=== PATIENT | male | born 1995 | race Caucasian/White ===

== ENCOUNTER 2021-11-24 00:19 | Inpatient (IN) | payer SELFPAY ==
[2021-11-24] VITALS (9 sets, daily range): BP systolic 103–142; BP diastolic 61–88; PULSE 64–84; RESP 16–19; TEMP 36.3–36.8; O2SAT 95–100; BMI 20.7
[2021-11-24 00:41] LABS: Basophils # 0.1 10^3/uL (0.0-0.1); Basophils % 1.2 %; Eosinophils # 0.5 10^3/uL (0.0-0.8); Eosinophils % 5.1 %; Hematocrit 45.7 % (42.0-52.0); Hemoglobin 15.3 g/dL (11.7-16.6); Lymphocytes # 4.5 10^3/uL (0.8-4.8); Lymphocytes % 45.6 %; Mean Corpuscular HGB Conc 33.5 g/dL (30.0-36.0); Mean Corpuscular Hemoglobin 33.2 pg (28.0-34.0); Mean Corpuscular Volume 99.1 fl (80-94); Mean Platelet Volume 9.7 fL (7.4-10.4); Monocytes # 0.6 10^3/uL (0.2-0.9); Monocytes % 6.3 %; Neutrophils # 4.07 10^3/uL (1.8-7.7); Neutrophils % 41.6 %; Nucleated Red Blood Cells % 0 %; Platelet Count 292 10^3/cmm (130-400); Red Blood Count 4.61 10^6/uL (4.1-5.3); Red Cell Distribution Width 12.2 % (12.1-15.1); White Blood Count 9.8 10^3/uL (4.0-10.0)
[2021-11-24 01:02] LABS: Alanine Aminotransferase 13 U/L (0-41); Albumin Level 4.1 g/dL (3.5-5.2); Alkaline Phosphatase 87 IU/L (40-130); Anion Gap 12.4 (5-19); Aspartate Amino Transferase 22 U/L (0-40); Blood Urea Nitrogen 14 mg/dL (6-20); Carbon Dioxide 28 mmol/L (22-29); Chloride 103 mmol/L (98-107); Glomerular Filtration Rate 118.8 mL/min (90-130); Glucose 86 mg/dL (65-115); Osmolality Calculated 288 mOsm/kg (285-295); Potassium 4.4 mmol/L (3.5-5.1); Sodium 139 mmol/L (136-145); Total Bilirubin 0.2 mg/dL (0.15-1.2); Total Protein 6.1 g/dL (6.6-8.7)
[2021-11-24 01:04] LABS: Acetaminophen < 5.0 ug/mL (10-30); Alcohol Level < 10 mg/dL (0-10); Salicylate < 0.3 mg/dL (3-10)
--- NOTE | 2021-11-24 01:12 | ED.C_ITS ---
HPI - Psych General: Chief Complaint: Psychiatric Symptoms Stated Complaint: court order 96 hour hold Time Seen by Provider: 11/24/21 00:29 Source: patient History of Present Illness: 26-year-old male who says he was hospitalized a month or so ago in [facility] for psychiatric problems. He presents tonight on a court ordered 96-hour hold. The report states that this young man had been hearing voices from the TV, and believes that devices can be implanted in TVs and electronic equipment to spy on others. He denies substance abuse. Denies any recent illnesses. MD complaint: other Onset (ago): day(s) Duration: constant History of same: Yes Relieving factors: none Exacerbating factors: none Context: not taking psychiatric medications Associated psychiatric symptoms: auditory hallucinations and visual hallucinations Associated symptoms: Reports depression Review of Systems Const: Denies: fever(s) or chills Eyes: Denies: change in vision ENMT: Denies: throat pain Card: Denies: chest pain Resp: Denies: dyspnea, productive cough or non-productive cough GI: Denies: abdominal pain, nausea, vomiting or diarrhea Neuro: Denies: headache(s) Psych: Reports: depression Physical Exam Const: GENERAL APPEARANCE: cooperative HENMT: COMMON NORMALS: normocephalic, atraumatic and Normal external nose present HEAD & SCALP: normocephalic and atraumatic NOSE: Normal external nose present Eye: COMMON NORMALS: Equal, round and reactive pupils present and EOMs intact bilaterally PUPIL: Yes Equal, round and reactive pupils present Neck/C-Spine: COMMON NORMALS: full ROM Chest: CHEST: Yes Symmetrical chest wall rise Resp: COMMON NORMALS: normal respiratory effort, No use of accessory muscles and clear to auscultation bilaterally AUSCULTATION: clear to auscultation bilaterally Cardio: COMMON NORMALS: regular rate and regular rhythm RATE: regular rate RHYTHM: regular rhythm GI: COMMON NORMALS: Normal to inspection, nondistended, normoactive bowel sounds present, Soft to palpation and non-tender PALPATION: Yes Soft to palpation Extremity: NARRATIVE EXTREMITY EXAM: Right index finger distal healing wound. Neuro: BJ COMA SCALE: document GCS findings Bj coma scale eye opening: Spontaneous [place] coma scale verbal response: Orientated Bj coma scale motor response: Obey commands [place] coma scale total score: 15 Psych: ATTITUDE: Yes calm ACTIVITY/MOTOR BEHAVIOR: Yes appropriate eye contact Course Vital Signs: Vital signs: Vital Signs Temperature 97.4 F L 11/24/21 00:27 Pulse Rate 70 11/24/21 01:01 Respiratory Rate 16 11/24/21 01:01 Blood Pressure 119/62 11/24/21 01:01 Pulse Oximetry 98 11/24/21 01:01 MDM - Psych Medical Decision Making Court ordered 96-hour hold. Medically he is stable. Lab Data : 11/24/21 00:36 11/24/21 00:36 Laboratory Results WBC 9.8 10^3/uL (4.0-10.0) 11/24/21 00:36 RBC 4.61 10^6/uL (4.1-5.3) 11/24/21 00:36 Hgb 15.3 g/dL (11.7-16.6) 11/24/21 00:36 Hct 45.7 % (42.0-52.0) 11/24/21 00:36 MCV 99.1 fl (80-94) H 11/24/21 00:36 MCH 33.2 pg (28.0-34.0) 11/24/21 00:36 MCHC 33.5 g/dL (30.0-36.0) 11/24/21 00:36 RDW 12.2 % (12.1-15.1) 11/24/21 00:36 Plt Count 292 10^3/cmm (130-400) 11/24/21 00:36 MPV 9.7 fL (7.4-10.4) 11/24/21 00:36 Neut % (Auto) 41.6 % 11/24/21 00:36 Lymph % (Auto) 45.6 % 11/24/21 00:36 [place] % (Auto) 6.3 % 11/24/21 00:36 Eos % (Auto) 5.1 % 11/24/21 00:36 Baso % (Auto) 1.2 % 11/24/21 00:36 Neut # (Auto) 4.07 10^3/uL (1.8-7.7) 11/24/21 00:36 Lymph # (Auto) 4.5 10^3/uL (0.8-4.8) 11/24/21 00:36 [place] # (Auto) 0.6 10^3/uL (0.2-0.9) 11/24/21 00:36 Eos # (Auto) 0.5 10^3/uL (0.0-0.8) 11/24/21 00:36 Baso # (Auto) 0.1 10^3/uL (0.0-0.1) 11/24/21 00:36 Nucleated RBC % (auto) 0 % 11/24/21 00:36 Nucleated RBCs # 0.0 /100WBC 11/24/21 00:36 Sodium 139 mmol/L (136-145) 11/24/21 00:36 Potassium 4.4 mmol/L (3.5-5.1) 11/24/21 00:36 Chloride 103 mmol/L (98-107) 11/24/21 00:36 Carbon Dioxide 28 mmol/L (22-29) 11/24/21 00:36 Anion Gap 12.4 (5-19) 11/24/21 00:36 BUN 14 mg/dL (6-20) 11/24/21 00:36 Creatinine 0.8 mg/dL (0.7-1.2) 11/24/21 00:36 GFR Calculation 118.8 mL/min (90-130) 11/24/21 00:36 Glucose 86 mg/dL (65-115) 11/24/21 00:36 Calculated Osmolality 288 mOsm/kg (285-295) 11/24/21 00:36 Calcium 8.0 mg/dL (8.5-10.5) L 11/24/21 00:36 Total Bilirubin 0.2 mg/dL (0.15-1.2) 11/24/21 00:36 AST 22 U/L (0-40) 11/24/21 00:36 ALT 13 U/L (0-41) 11/24/21 00:36 Alkaline Phosphatase 87 IU/L (40-130) 11/24/21 00:36 Total Protein 6.1 g/dL (6.6-8.7) L 11/24/21 00:36 Albumin 4.1 g/dL (3.5-5.2) 11/24/21 00:36 Globulin 2.0 g/dL (1.3-4.6) 11/24/21 00:36 Salicylates < 0.3 mg/dL (3-10) L 11/24/21 00:36 Acetaminophen < 5.0 ug/mL (10-30) L 11/24/21 00:36 Ethyl Alcohol < 10 mg/dL (0-10) 11/24/21 00:36 Discharge Plan Discharge Patient Disposition: Admitted As Inpatient Admit Provider: Cristiano Ni Clinical Impression: Acute psychosis Condition: Stable Coding Level of Care Code ED Seed Potato Cutter for [place] Fwd Exam Comprehensive
[2021-11-24 01:14] LABS: Slide Review Slide Review Perform
--- NOTE | 2021-11-24 03:42 | PC.ADMIT ---
Admission Note: 26-year-old male who says he was hospitalized a month or so ago in [facility] for psychiatric problems. He presents tonight on a court ordered 96-hour hold. The report states that this young man had been hearing voices from the TV, and believes that devices can be implanted in TVs and electronic equipment to spy on others. He denies substance abuse. Denies any recent illnesses. The patient,George Cleaning,26 y/o, was given written information regarding hospital policies, unit procedures and contact persons. Patient's smoking status: . Vital Signs - 8 hr 11/24/21 00:27 11/24/21 01:01 11/24/21 01:30 Temperature 97.4 F L Pulse Rate 77 70 73 Respiratory Rate 16 16 16 Blood Pressure 142/85 119/62 107/64 Pulse Oximetry 95 98 98 11/24/21 02:00 11/24/21 02:41 11/24/21 03:03 Temperature 97.6 F Pulse Rate 71 64 68 Respiratory Rate 16 16 17 Blood Pressure 112/61 111/77 136/88 Pulse Oximetry 99 96 100
[2021-11-24 04:16] LABS: Add Urine Microscopic? NO; Charge for UA Resulting for Rev
[2021-11-24 04:31] LABS: Bilirubin Urine Neg (Negative); Blood Urine Neg (Negative); Glucose Urine UA Norm (Normal); Ketones Urine Negative (Negative); Nitrate Urine Negative (Negative); Protein Urine Neg (Negative); Urine Appearance Clear (CLEAR); Urine Color Yellow (Yellow); pH Urine 6 (5-7)
[2021-11-24 04:32] LABS: Leukocyte Esterase Urine Negative (Negative); Urobilinogen Urine Norm (Negative)
[2021-11-24 04:43] LABS: Amphetamines Screen Urine Positive (Negative); Barbiturates Screen Urine Negative (Negative); Benzodiazepines Screen Urine Negative (Negative); Cocaine Screen Urine Negative (Negative); Opiate Screen Urine Negative (Negative); PCP Screen Urine Negative (Negative); THC Screen Urine Positive (Negative)
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
[2021-11-25 06:00] VITALS: RESP 17
[2021-11-25 14:00] VITALS: BP 113/75; PULSE 85; RESP 18; TEMP 37.2; O2SAT 98
--- NOTE | 2021-11-25 17:16 | PC.SOCIAL ---
Patient did not attend group.
--- NOTE | 2021-11-25 18:56 | P.NPUPN_ITS ---
Subjective NPU Subjective: Patient presents today reporting that this field underwriter was correct yesterday. When asked what he meant he identified that he is confident that the reason why he thought there was something in his ear because he had used too much ago. . He was much more relaxed and able to be conversant about this patient and reports that he started having psychotic thoughts after a period of overuse. We discussed working with the treatment team to explore treatment options and identify any obstacles to discharge. He continues to be on a 96- hour hold. Mental Status Exam MSE Comments: This is a slender versus underweight older white male in hospital scrubs with adequate grooming and eye contact.? No abnormal movements.? Cooperative with exam in no acute distress. Speech was normal rate and volume. Mood described as much better, affect congruent. Thought process organized. The continent: patient denies suicidal or homicidal ideation, there are no delusions reported or noted, he denied any auditory or visual hallucinations.? Attention and concentration were intact and memory was more reliable but none were formally tested. He is alert and oriented times 3. Insight and judgment are improving and impulse control is limited. Vitals/I&O/Wt Last Vital Signs Temp 97.3 F L 11/25/21 21:40 Pulse 87 11/25/21 21:40 Resp 18 11/25/21 21:40 BP 127/85 11/25/21 21:40 Pulse Ox 98 11/25/21 21:40 Data NPU : 11/24/21 00:36 11/24/21 00:36 A&P Assessment and plan (1) Cannabis use disorder, severe, dependence: Status: Acute (2) Methamphetamine use disorder, severe: Status: Acute (3) Acute psychosis: Status: Acute Plan This is a 26-year-old white male who presents with a history of methamphetamine challenges and psychosis likely secondary to amphetamine exposure who presents on a 96-hour hold resistant to interview secondary to concerns that this field underwriter does not think the device he feels is in his ear is real. 1.? Continue current medication. 2.? Continue every 15 minute checks for safety. 3.? Encourage individual, group and milieu therapies. 4.? Encourage sober living treatment after discharge at the highest level of care to which he is willing to commit. 5. We will evaluate the concerns for the 96-hour hold and consider discharge in the next 48 hours. Involuntary Hold Information 96 Hour Hold: 96 Hour Involuntary Admission: Yes 96 Hour Hold Ending Date: 11/28/21 96 Hour Hold Ending Time: 01:21 Attestations NPU Medical Necessity Statement*: Inpatient hospitalization is medically necessary and the clinically appropriate intervention at this time. We will monitor medication to make changes as indicated. Likely length of stay 1-3 days. Coding Level of Care Code Acute Manager Drive for Lulu Mercado Diagnoses Cannabis use disorder, severe, dependence F12.20 Methamphetamine use disorder, severe F15.20 Acute psychosis F23
[2021-11-25 21:40] VITALS: BP 127/85; PULSE 87; RESP 18; TEMP 36.3; O2SAT 98
[2021-11-26 06:00] VITALS: RESP 17
[2021-11-26 13:39] VITALS: BP 122/64; PULSE 78; RESP 16; TEMP 36.5; O2SAT 98
--- NOTE | 2021-11-26 13:53 | P.NPUPN_ITS ---
Subjective NPU Subjective: Patient presents today continuing to show progress from his initial presentation where he was psychotic and paranoid. The substance- induced/methamphetamine induced psychosis has resolved and he is supposed to be going to live with a family member. He appreciated the treatment team's help in getting him resources and working with him to get a place to stay. We reviewed the plan for him to be discharged tomorrow from a 96-hour hold as well as the hospital which made him quite happy. He denied any concerns or issues today. Mental Status Exam MSE Comments: This is a slender versus underweight older white male in hospital scrubs with adequate grooming and eye contact.? No abnormal movements.? Cooperative with exam in no acute distress. Speech was normal rate and volume. Mood described as pretty good, affect congruent. Thought process organized. The continent: patient denies suicidal or homicidal ideation, there are no delusions reported or noted, he denied any auditory or visual hallucinations.? Attention and concentration were intact and memory was more reliable but none were formal ly tested. He is alert and oriented times 3. Insight and judgment are improving and impulse control is limited. Vitals/I&O/Wt Last Vital Signs Temp 97.7 F 11/26/21 13:39 Pulse 78 11/26/21 13:39 Resp 16 11/26/21 13:39 BP 122/44 11/26/21 13:39 Pulse Ox 98 11/26/21 13:39 Data NPU : 11/24/21 00:36 11/24/21 00:36 A&P Assessment and plan (1) Cannabis use disorder, severe, dependence: Status: Acute (2) Methamphetamine use disorder, severe: Status: Acute (3) Acute psychosis: Status: Acute Plan This is a 26-year-old white male who presents with a history of methamphetamine challenges and psychosis likely secondary to amphetamine exposure who presents on a 96-hour hold resistant to interview secondary to concerns that 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 1.? Continue current medication. 2.? Continue every 15 minute checks for safety. 3.? Encourage individual, group and milieu therapies. 4.? Encourage sober living treatment after discharge at the highest level of care to which he is willing to commit. 5.? Plan for discharge tomorrow. Involuntary Hold Information 96 Hour Hold: 96 Hour Involuntary Admission: Yes 96 Hour Hold Ending Date: 11/28/21 96 Hour Hold Ending Time: 01:21 Attestations NPU Medical Necessity Statement*: Inpatient hospitalization is medically necessary and the clinically appropriate intervention at this time. We will monitor medication to make changes as indicated. Likely length of stay 1-2 days. Tentative plan for discharge in the morning. Coding Level of Care Code Acute Concrete Handler for Lulu Mercado Diagnoses Cannabis use disorder, severe, dependence F12.20 Methamphetamine use disorder, severe F15.20 Acute psychosis F23
[2021-11-26] MEDS: trazodone 50 mg Tablet PO (20:14)
[2021-11-26 21:26] VITALS: BP 116/69; PULSE 74; RESP 16; TEMP 36.5; O2SAT 99
[2021-11-27 06:00] VITALS: BP 121/74; PULSE 93; RESP 16; TEMP 36.6; O2SAT 98
--- NOTE | 2021-11-27 10:13 | P.NPUDS_ITS ---
Diagnoses at Discharge Discharge Diagnosis (1) Cannabis use disorder, severe, dependence: Status: Acute (2) Methamphetamine use disorder, severe: Status: Acute (3) Acute psychosis: Status: Acute Reason for Visit Reason for Visit: court order 96 hour hold Brief History: History of Present Illness George Cleaning is a 26 year old male who presented to the emergency department the following report: Chief Complaint: Psychiatric Symptoms Stated Complaint: court order 96 hour hold Time Seen by Provider: 11/24/21 00:29 Source: patient History of Present Illness:?? 26-year-old male who says he was hospitalized a month or so ago in [facility] for psychiatric problems.? He presents tonight on a court ordered? 96- hour hold.? The report states that this young man had been hearing voices from the TV, and believes that devices can be implanted in TVs and electronic equipment to spy on others.? He denies substance abuse.? Denies any recent illnesses. MD complaint: other Onset (ago): day(s) Duration: constant History of same: Yes Relieving factors: none Exacerbating factors: none Context: not taking psychiatric medications Associated psychiatric symptoms: auditory hallucinations and visual hallucinations Associated symptoms: Reports depression. He was admitted to the neuropsychiatric unit for definitive treatment of those issues.? He presents today reporting that he was having problems with his ears.? Further inquiry identified and he believes that there was a device in his ear that needed to be removed.? The essence of our conversation surrounding his desire to have this conventional mortgage underwriter get him an MRI to identify was in their system getting out.? At 1 point he did acknowledge use of drugs.? He did describe having been involved with [facility] at some point and had denied inpatient hospitalization previously.? When asked if it was possible that the drugs were impacting how he was thinking he got very upset smacked his hands together and started the room and would not speak to this conventional mortgage underwriter for the remainder of the day.? His UDS was positive for amphetamines and cannabis.? He denied any current medications or any desire to medications during that brief conversation.? Review of his history did identify a couple of encounters with behavioral health starting in 2016.? He had an ICU stay secondary to methamphetamine in 2018.? An excerpt of his outpatient assessment is included below for context given his limited ability to give history. Hospital Course Hospital Course He slowly acclimated to the individual, group and milieu therapies provided. He was not given medications other than standard as needed medications. He was able to contract for safety outside hospital prior to discharge. During the hospitalization, patient had routine laboratory studies which were within normal limits except for few outliers. Additionally there was a general medical evaluation which was also within normal limits and revealed no new acute processes. Discharge Summary: At the time of discharge, lethality was denied and psychosis was resolving. Mood and anxiety were well managed. Patient endorsed a plan to follow-up with the aftercare recommendations of the treatment team. Patient was evaluated and deemed to be absent credible lethality, and had achieved the maximum benefit from an inpatient hospitalization, so was discharged. Involuntary Hold Information 96 Hour Hold: 96 Hour Involuntary Admission: Yes 96 Hour Hold Ending Date: 11/28/21 96 Hour Hold Ending Time: 01:21 Mental Status Exam MSE Comments: This is a slender versus underweight older white male in hospital scrubs with adequate grooming and eye contact.? No abnormal movements.? Cooperative with exam in no acute distress. Speech was normal rate and volume. Mood described as pretty good, affect congruent. Thought process organized. The continent: patient denies suicidal or homicidal ideation, there are no delusions reported or noted, he denied any auditory or visual hallucinations.? Attention and concentration were intact and memory was more reliable but none were formally tested. He is alert and oriented times 3. Insight and judgment are improving and impulse control is limited. Cognition: Patient Appearance: Appropriate Level of Consciousness: Awake, Alert, Appropriate and Follows Commands Patient Cognition Impaired: No Ability to Follow Directions: Good Patient Orientation (long list): Person, Name, Age and Birthday Comprehension Ability: No Impairment Hallucination Type: None Delusion Description: Not Present Thought Process: Appropriate Affect: Affect Description: Calm Behavior: Patient Behavior: Appropriate Speech Pattern: Appropriate and Clear Discharge Data Studies Completed and Pending: Laboratory Results WBC 9.8 10^3/uL (4.0- 10.0) 11/24/21 00:36 RBC 4.61 10^6/uL (4.1 -5.3) 11/24/21 00:36 Hgb 15.3 g/dL (11.7-1 6.6) 11/24/21 00:36 Hct 45.7 % (42.0-52.0 ) 11/24/21 00:36 MCV 99.1 fl (80-94) H 05 00:36 MCH 33.2 pg (28.0-34. 0) 11/24/21 00:36 MCHC 33.5 g/dL (30.0-3 6.0) 11/24/21 00:36 RDW 12.2 % (12.1-15.1 ) 11/24/21 00:36 Plt Count 292 10^3/cmm (130 -400) 11/24/21 00:36 MPV 9.7 fL (7.4-10.4) 11/24/21 00:36 Neut % (Auto) 41.6 % 05 00:36 Lymph % (Auto) 45.6 % 11/24/21 00:36 Elk % (Auto) 6.3 % 11/24/21 00:36 Eos % (Auto) 5.1 % 11/24/21 00:36 Baso % (Auto) 1.2 % 11/24/21 00:36 Neut # (Auto) 4.07 10^3/uL (1.8 -7.7) 11/24/21 00:36 Lymph # (Auto) 4.5 10^3/uL (0.8- 4.8) 11/24/21 00:36 Elk # (Auto) 0.6 10^3/uL (0.2- 0.9) 11/24/21 00:36 Eos # (Auto) 0.5 10^3/uL (0.0- 0.8) 11/24/21 00:36 Baso # (Auto) 0.1 10^3/uL (0.0- 0.1) 11/24/21 00:36 Nucleated RBC % (a uto) 0 % 11/24/21 00:36 Nucleated RBCs # 0.0 /100WBC 11/24/21 00:36 Sodium 139 mmol/L (136-1 45) 11/24/21 00:36 Potassium 4.4 mmol/L (3.5-5 .1) 11/24/21 00:36 Chloride 103 mmol/L (98-10 7) 11/24/21 00:36 Carbon Dioxide 28 mmol/L (22-29) 11/24/21 00:36 Anion Gap 12.4 (5-19) 11/24/21 00:36 BUN 14 mg/dL (6-20) 11/24/21 00:36 Creatinine 0.8 mg/dL (0.7-1. 2) 11/24/21 00:36 GFR Calculation 118.8 mL/min (90- 130) 11/24/21 00:36 Glucose 86 mg/dL (65-115) 11/24/21 00:36 Calculated Osmolal ity 288 mOsm/kg (285- 295) 11/24/21 00:36 Calcium 8.0 mg/dL (8.5-10 .5) L 11/24/21 00:36 Total Bilirubin 0.2 mg/dL (0.15-1 .2) 11/24/21 00:36 AST 22 U/L (0-40) 11/24/21 00:36 ALT 13 U/L (0-41) 11/24/21 00:36 Alkaline Phosphata se 87 IU/L (40-130) 11/24/21 00:36 Total Protein 6.1 g/dL (6.6-8.7 ) L 11/24/21 00:36 Albumin 4.1 g/dL (3.5-5.2 ) 11/24/21 00:36 Globulin 2.0 g/dL (1.3-4.6 ) 11/24/21 00:36 Urine Color Yellow (Yellow) 11/24/21 03:15 Urine Appearance Clear (CLEAR) 11/24/21 03:15 Urine pH 6 (5-7) 11/24/21 03:15 Ur Specific Gravit y 1.020 (1.005-1.0 30) 11/24/21 03:15 Urine Protein Neg (Negative) 11/24/21 03:15 Urine Glucose (UA) Norm (Normal) 11/24/21 03:15 Urine Ketones Negative (Negati ve) 11/24/21 03:15 Urine Blood Neg (Negative) 11/24/21 03:15 Urine Nitrate Negative (Negati ve) 11/24/21 03:15 Urine Bilirubin Neg (Negative) 11/24/21 03:15 Urine Urobilinogen Norm mg/dL (Negat jordy) 11/24/21 03:15 Ur Leukocyte [place] ase Negative (Negati ve) 11/24/21 03:15 Salicylates < 0.3 mg/dL (3-10 ) L 11/24/21 00:36 Urine Opiates Scre en Negative ng/mL (N egative) 11/24/21 03:15 Acetaminophen < 5.0 ug/mL (10-3 0) L 11/24/21 00:36 Ur Barbiturates Sc reen Negative ng/mL (N egative) 11/24/21 03:15 Ur Phencyclidine S crn Negative ng/mL (N egative) 11/24/21 03:15 Ur Amphetamines Sc reen Positive ng/mL (N egative) H 11/24/21 03:15 U Benzodiazepines Scrn Negative ng/mL (N egative) 11/24/21 03:15 Urine Cocaine Scre en Negative ng/mL (N egative) 11/24/21 03:15 U Marijuana (THC) Screen Positive ng/mL (N egative) H 11/24/21 03:15 Ethyl Alcohol < 10 mg/dL (0-10) 11/24/21 00:36 Vitals: Last Vital Signs Temp 97.8 F 11/27/21 06:00 Pulse 93 11/27/21 06:00 Resp 16 11/27/21 06:00 BP 121/74 11/27/21 06:00 Pulse Ox 98 11/27/21 06:00 Discharge Plan Discharge Patient Disposition: Home Condition: Stable Discharge Orders: Discharge Order (Routine); Ordered 11/27/21 Ordered By: Hernandez Cid Referrals: Charity Cheney [Therapist] - 11/27/21 12:30 pm (Initial appointment) Discharge Diet: Regular Discharge Activity: Resume usual activity Patient Instructions: Opioid Safety Discharge Attestations NPU Time Spent in Discharge Care*: less than 30 min Specific Discharge Activities: Specific discharge activities: educating patient, discussing with rn case management/social workers/dc planners, documenting/other paperwork and evaluating patient/reviewing data Coding Level of Care Code Acute Chg FW DC note Diagnoses Cannabis use disorder, severe, dependence F12.20 Methamphetamine use disorder, severe F15.20 Acute psychosis F23
[2021-11-27 10:38] VITALS: BP 121/74; PULSE 93; RESP 16; TEMP 36.6; O2SAT 98
== END 2021-11-27 11:43 | disposition home or self-care (01) | DRG 897 ==
LOC: ER 01:20 → NP 02:00
PROVIDERS: Admitting Provider Psychiatry & Neurology Psychiatry; Emergency Provider Emergency Medicine; Visit Provider Psychiatry & Neurology Psychiatry
DX: F15.259 Other stimulant dependence with stimulant-induced psychotic disorder, unspecified (principal); F15.20 Other stimulant dependence, uncomplicated; F12.20 Cannabis dependence, uncomplicated
CPT/HCPCS: 80053; 80306; 80307; 81003; 85025; 97165; 99285

== ENCOUNTER 2021-12-27 03:15 | Emergency (ER) | payer SELFPAY ==
[2021-12-27 03:19] VITALS: BP 161/71; PULSE 69; RESP 18; TEMP 36.6; O2SAT 100; BMI 21.5
[2021-12-27 05:23] VITALS: RESP 16
[2021-12-27] MEDS: sulfamethoxazole-trimeth DS 160-800 mg Tablet 2 TAB PO (05:23)
[2021-12-27] MEDS: predniSONE 20 mg Tablet 40 MG PO (05:23)
[2021-12-27] MEDS: oxyCODONE-APAP 5-325 mg Tablet 2 TAB PO (05:23)
[2021-12-27 05:27] VITALS: PULSE 77; RESP 18; O2SAT 97
[2021-12-27 05:28] VITALS: PULSE 77; RESP 18; O2SAT 97
--- NOTE | 2021-12-28 17:09 | ED_ITS ---
HPI - Skin/Abscess/Foreign Bdy General: Chief complaint: Skin/Abscess/Foreign Body Stated complaint: cyst under R arm Time Seen by Provider: 12/27/21 05:14 History of Present Illness: 26-year-old male with a skin lesion that is painful and swollen in his right axilla. It has been worsening for a couple of days. He had squeezed it once, and was able to express by history with seems to be purulent discharge. He describes it again tonight, heard a pop, and had increasing pain. He presents with pain and swelling with minimal drainage to the right axilla lesion. No fever. No vomiting MD complaint: abscess/boil Onset (ago): day(s) Location: RUE Severity: moderate Quality: burning and stabbing Pain Consistency: constant Exacerbating factors: movement Associated symptoms: Deny chills, fever(s) or vomiting Review of Systems Const: Denies: fever(s) or chills Card: Denies: chest pain Resp: Denies: dyspnea GI: Denies: vomiting Skin/Breast: Reports: rash and skin tenderness [facility] ED PFSH: Medical History Cannabis dependence, uncomplicated Drug-induced psychotic disorder Nicotine dependence, cigarettes, uncomplicated Opioid dependence, in remission Other stimulant dependence, uncomplicated Post-traumatic stress disorder, chronic Psychiatric care Sedative, hypnotic or anxiolytic dependence, in remission Physical Exam Const: GENERAL APPEARANCE: cooperative; not ill appearing and not frail appearing HENMT: COMMON NORMALS: normocephalic and atraumatic HEAD & SCALP: normocephalic and atraumatic Eye: COMMON NORMALS: Equal, round and reactive pupils present and EOMs intact bilaterally PUPIL: Yes Equal, round and reactive pupils present Neck/C-Spine: GENERAL: Yes trachea midline Chest: CHEST: Yes Symmetrical chest wall rise Resp: COMMON NORMALS: normal respiratory effort, No retractions and No use of accessory muscles Cardio: COMMON NORMALS: regular rate and regular rhythm RATE: regular rate RHYTHM: regular rhythm Extremity: NARRATIVE EXTREMITY EXAM: Exam of the right upper extremity reveals a small slightly fluctuant area of tenderness and swelling in the right axilla. There is an opening with no current drainage. Current size is 1 inch. There is no streaking redness. No axillary lymphadenopathy present. Neuro: TONI COMA SCALE: document GCS findings Toni coma scale eye opening: Spontaneous Toni coma scale verbal response: Orientated Toni coma scale motor response: Obey commands Toni coma scale total score: 15 Course Vital Signs: Vital signs: Vital Signs Temperature 97.8 F 12/27/21 03:19 Pulse Rate 77 12/27/21 05:28 Respiratory Rate 18 12/27/21 05:28 Blood Pressure 161/71 12/27/21 03:19 Pulse Oximetry 97 12/27/21 05:28 MDM - Skin/Abscess/Foreign Bdy Medicial Decision Making Small abscess to the right axilla. It is already drained. There is minimal fluctuance. I&D is not likely to obtain impressive results or improvement. He is afebrile. There is no lymphangitis. He will be placed on antibiotics. Discharge Plan Discharge Patient Disposition: Home Clinical Impression: Abscess of skin or subcutaneous tissue, Contact dermatitis Condition: Stable Prescriptions: New ketorolac 10 mg tablet 10 mg PO TID PRN (Reason: pain) Qty: 10 0RF Medrol (Aquilino) 4 mg tablets,dose pack See Rx Instructions .ROUTE .COMPLEX Qty: 21 0RF Rx Instructions: orally per package directions Bactrim DS 800-160 mg tablet 1 tab PO BID 10 Days Qty: 20 0RF Discharge Orders: Discharge ED (Routine); Ordered 12/27/21 Ordered By: Herbert Mancilla Patient Instructions: Poison Vicky (ED), Abscess (ED) Activity Restrictions/Additional Instructions: Return for fever greater than 100 despite 3 or more doses of antibiotics, worsening pain, spreading redness despite 3 or more doses of antibiotics, vomiting liquids or medications, other concerning symptoms. Medications as directed. Coding Level of Care Code ED Certified Technician Specialist for Lulu Mercado
== END 2021-12-27 05:28 | disposition home or self-care (01) ==
PROVIDERS: Emergency Provider Emergency Medicine
DX: L02.411 Cutaneous abscess of right axilla (principal); L25.9 Unspecified contact dermatitis, unspecified cause
CPT/HCPCS: 99283; J7512

== ENCOUNTER 2021-12-29 22:21 | Emergency (ER) | payer SELFPAY ==
[2021-12-29 22:23] VITALS: BMI 22.2
[2021-12-29 22:27] VITALS: BP 149/92; PULSE 102; RESP 16; TEMP 36.7; O2SAT 97
--- NOTE | 2021-12-29 22:30 | W.ED.SKABFB ---
HPI - Skin/Abscess/Foreign Bdy General: Chief complaint: Skin/Abscess/Foreign Body Stated complaint: mass in arm pit Time Seen by Provider: 12/29/21 22:29 History of Present Illness: 26-year-old male comes in with enlarging abscess under the right arm. Patient was seen on the late on the fourth or early fifth and was treated for abscess without drainage. Patient was started on antibiotics and steroid. Patient reports increasing swelling and tenderness to the site. Review of Systems General: Reports: 10 or more systems reviewed and unremarkable except in HPI and below Card: Denies: chest pain Resp: Denies: dyspnea Musc: Reports: extremity pain Skin/Breast: Reports: new lesions PFS ED PFSH: Medical History Cannabis dependence, uncomplicated Drug-induced psychotic disorder Nicotine dependence, cigarettes, uncomplicated Opioid dependence, in remission Other stimulant dependence, uncomplicated Post-traumatic stress disorder, chronic Psychiatric care Sedative, hypnotic or anxiolytic dependence, in remission Physical Exam Const: COMMON NORMALS: alert Neck/C-Spine: COMMON NORMALS: full ROM and no meningeal signs Chest: COMMONS NORMALS: normal inspection of the chest Resp: COMMON NORMALS: normal respiratory effort Cardio: COMMON NORMALS: regular rate RATE: regular rate Extremity: RIGHT UPPER EXTREMITY: Yes shoulder joint (Erythema and swelling to the right axilla) Neuro: SENSORIUM/ORIENTATION: Yes alert MENINGEAL SIGNS: Yes no meningeal signs Skin: NARRATIVE SKIN EXAM: Redness and swelling to the right axilla GENERAL SKIN EXAM: erythema Procedures Abscess I/D Site: upper extremity (Axilla) Side (if applicable): right Sedation/analgesia: fentanyl Local Anesthetic: lidocaine 2% Amount of anesthesia used (mL): 2 Technique: incised with #11 blade Amount of fluid expressed (mL): 4 Irrigation: Yes Packing used?: none Course Vital Signs: Vital signs: Vital Signs Temperature 98.0 F 12/29/21 22:27 Pulse Rate 102 H 12/29/21 22:27 Respiratory Rate 20 H 12/29/21 22:49 Blood Pressure 149/92 12/29/21 22:27 Pulse Oximetry 97 12/29/21 22:27 MDM - Skin/Abscess/Foreign Bdy Medicial Decision Making 26-year-old male comes in with increasing swelling and tenderness to the right axilla. On exam we note a small area of redness to the mid axilla with an enlarged mass to the anterior axilla. Differential diagnosis includes abscess, lymphadenitis, obstructed apocrine gland. I&D was performed to the axilla with purulent drainage expressed from the site. Also made an incision into the mass that was slightly anterior to the axilla and also drained more purulent drainage. Most likely this represents a abscess that is tracked. Patient will continue on Bactrim. Patient was given a dose of clindamycin IV. We will cover of some hydrocodone for his increased pain and discomfort. Patient should continue with the other medication as prescribed by Dr. Mancilla. Patient was recommended to return to the ER as needed. Patient reported understanding agreed to plan. Discharge Plan Discharge Patient Disposition: Home Clinical Impression: Abscess of axilla, right Condition: Stable Prescriptions: New hydrocodone-acetaminophen 5-325 mg tablet 1 tab PO Q8H PRN (Reason: pain (scale score 7-10)) Qty: 6 0RF No Action ketorolac 10 mg tablet 10 mg PO TID PRN (Reason: pain) Qty: 10 0RF Medrol (Aquilino) 4 mg tablets,dose pack See Rx Instructions .ROUTE .COMPLEX Qty: 21 0RF Rx Instructions: orally per package directions Bactrim DS 800-160 mg tablet 1 tab PO BID 10 Days Qty: 20 0RF Discharge Orders: Discharge ED (Routine); Ordered 12/29/21 Ordered By: Trevor White Discharge Diet: Usual diet Discharge Activity: Increase activity as tolerated Patient Instructions: Abscess Incision and Drainage (DC) Activity Restrictions/Additional Instructions: Home and use warm moist packs to the area to promote drainage. You may soak in a hot tub of water with 1/4 cup of bleach in order to encourage drainage from the site. Make sure to drink plenty of water and fluids with antibiotic. Use acetaminophen and ibuprofen to control pain. Use hydrocodone for severe pain. Follow-up with primary care in 1 to 2 days for recheck. Return to ER for new concerns or worsening symptoms. Coding Level of Care Code ED Pulmonary Fellow for Lulu Mercado
[2021-12-29] MEDS: LORazepam 2 mg/mL INJ 1 mL 0.5 MG IVP (22:48)
[2021-12-29 22:49] VITALS: RESP 20
[2021-12-29] MEDS: fentaNYL 50 mcg/mL INJ 2mL IVP (22:49)
[2021-12-29] MEDS: ketorolac 30 mg/mL INJ IVP (23:36)
[2021-12-29] MEDS: clindamycin 600 MG/50 ML PREMIX 100 MG IV (23:41)
[2021-12-30 01:36] VITALS: BP 124/84; PULSE 79; RESP 18; O2SAT 97
== END 2021-12-30 01:38 | disposition home or self-care (01) ==
PROVIDERS: Emergency Provider Nurse Practitioner Family
DX: L02.411 Cutaneous abscess of right axilla (principal)
CPT/HCPCS: 10060; 96365; 96375; 99284; J1885; J2060; J3010; J3490